=== PATIENT | female | born 1980 | race Caucasian/White ===

== ENCOUNTER 2021-10-03 05:44 | Emergency (ER) | payer OTHER ==
[~2021-10-03] VITALS: Ht 165.1 cm; Wt 84.1 kg
[2021-10-03] MEDS ORDERED: CALC60OI2 TP (05:52)
[2021-10-03] MEDS ORDERED: ACETAMINOPHEN 500 MG TABLET PO ONE (06:15)
[2021-10-03 06:42] LABS: BASOPHILS % (AUTO) 0.5 % (0.0-2.0); EOSINOPHILS % (AUTO) 0.8 % (1.0-6.0); HEMATOCRIT 39.2 % (36-46); HEMOGLOBIN 12.9 g/dL (12.0-16.0); LYMPHOCYTES # (AUTO) 2.3 K/uL (1.0-4.8); LYMPHOCYTES % (AUTO) 11.4 % (22.0-44.0); MEAN CORPUSCULAR HEMOGLOBIN 28.1 pg (26.0-34.0); MEAN CORPUSCULAR HGB CONC 32.8 G/dL (31.0-37.0); MEAN CORPUSCULAR VOLUME 86 fL (80-100); MONOCYTES # (AUTO) 1.2 K/uL (0.1-1.0); MONOCYTES % (AUTO) 5.9 % (2.0-9.0); NEUTROPHILS # (AUTO) 16.6 K/uL (1.8-7.7); NEUTROPHILS % (AUTO) 81.4 % (40.0-70.0); PLATELET COUNT (AUTO) 308 K/uL (150-450); RED BLOOD CELL COUNT(AUTO) 4.59 MIL/uL (4.00-5.20); RED CELL DISTRIBUTION WIDTH 13.7 % (11.5-14.5)
[2021-10-03 06:43] LABS: COVID AG,FIA SOURCE NASOPHARYNGEAL
[2021-10-03 06:49] LABS: ANION GAP 11 mmol/L (8-16); CALCIUM, TOTAL 7.9 mg/dL (8.8-10.5); CARBON DIOXIDE 26 mmol/L (22-29); CHLORIDE 105 mmol/L (98-107); CREATININE 0.64 mg/dL (0.60-1.30); GLUCOSE,RANDOM 74 mg/dL (70-110); POTASSIUM 3.4 mmol/L (3.5-5.1); SODIUM SERUM 142 mmol/L (136-145); UREA NITROGEN, BLOOD 15 mg/dL (7-18)
[2021-10-03 06:54] LABS: GLOMERULAR FILTR. RATE CALC > 60 mL/min (>60)
[2021-10-03 06:58] LABS: B-TYPE NATRIURETIC PEPTIDE 26 pg/mL (0-100)
[2021-10-03 07:03] LABS: ALANINE AMINOTRANSFERASE 19 U/L (12-78); ALBUMIN 3.6 g/dL (3.4-5.0); ALKALINE PHOSPHATASE 72 U/L (46-116); ASPARTATE AMINOTRANSFERASE 18 U/L (15-37); BILIRUBIN,TOTAL 0.3 mg/dL (0.1-1.0); CREATINE KINASE, TOTAL ONLY 49 U/L (26-192); HCG,QUANTITATIVE < 1 mIU/mL (0-6)
[2021-10-03] MEDS ORDERED: AZITHROMYCIN 500 MG TABLET PO ONE (07:15)
[2021-10-03] MEDS ORDERED: AZIT-84 PO (07:22)
[2021-10-03 07:29] LABS: INFLUENZA TYPE A NEGATIVE FOR TYPE A (NEGATIVE); INFLUENZA TYPE B NEGATIVE FOR TYPE B (NEGATIVE)
[2021-10-03 09:44] VITALS: BP 102/62
== END 2021-10-03 09:45 | disposition home or self-care (01) ==
LOC: EMS 05:45
DX: J40 Bronchitis, not specified as acute or chronic (principal); L40.9 Psoriasis, unspecified; F17.210 Nicotine dependence, cigarettes, uncomplicated; Z90.710 Acquired absence of both cervix and uterus; Z98.890 Other specified postprocedural states; Z88.6 Allergy status to analgesic agent; Z88.0 Allergy status to penicillin; Z20.822 Contact with and (suspected) exposure to COVID-19
CPT/HCPCS: 99285; 71045; 87426; 80053; 82550; 83880; 84484; 84702; 85025; 87804; 36415; 93005; Q9967

== ENCOUNTER 2022-04-08 04:17 | Emergency (ER) | payer OTHER ==
[~2022-04-08] VITALS: Ht 172.7 cm; Wt 109.1 kg
[~2022-04-08 04:17] MED LIST: AZIT-84 PO; CALC60OI2 TP
[2022-04-08 04:38] VITALS: BP 122/64
[2022-04-08] MEDS ORDERED: SULFAMETHOX/TRIMETH DS 800-160 MG/TABLET PO ONE (04:45)
[2022-04-08] MEDS ORDERED: IBUP-1492 PO (04:50)
[2022-04-08] MEDS ORDERED: SULF-261 PO (04:50)
== END 2022-04-08 05:10 | disposition home or self-care (01) ==
LOC: EMS 04:17
DX: K12.2 Cellulitis and abscess of mouth (principal); L40.9 Psoriasis, unspecified; F17.210 Nicotine dependence, cigarettes, uncomplicated; Z90.49 Acquired absence of other specified parts of digestive tract; Z90.710 Acquired absence of both cervix and uterus; Z88.0 Allergy status to penicillin; Z88.5 Allergy status to narcotic agent
CPT/HCPCS: 99283

== ENCOUNTER 2022-05-14 09:51 | Emergency (ER) | payer OTHER ==
[~2022-05-14] VITALS: Ht 165.1 cm; Wt 86.4 kg
[~2022-05-14 09:51] MED LIST changes: +AZIT-103 PO; -AZIT-84 PO; +IBUP-1492 PO; +SULF-261 PO
[2022-05-14] MEDS ORDERED: OxyCODONE HCL/ACETAMINOPHEN 5-325 MG TABLET PO ONE (11:00)
[2022-05-14] MEDS ORDERED: CLIN-26 PO (11:05)
[2022-05-14 11:28] VITALS: BP 137/70
== END 2022-05-14 11:48 | disposition home or self-care (01) ==
LOC: EMS 09:52
DX: K08.89 Other specified disorders of teeth and supporting structures (principal); L40.9 Psoriasis, unspecified; F17.210 Nicotine dependence, cigarettes, uncomplicated; Z90.49 Acquired absence of other specified parts of digestive tract; Z90.710 Acquired absence of both cervix and uterus; Z88.0 Allergy status to penicillin; Z88.5 Allergy status to narcotic agent
CPT/HCPCS: 99283

== ENCOUNTER 2023-07-04 09:24 | Emergency (ER) | payer OTHER ==
[~2023-07-04] VITALS: Ht 165.1 cm; Wt 84.1 kg
[~2023-07-04 09:24] MED LIST changes: -AZIT-103 PO; -CALC60OI2 TP; +CLIN-26 PO; -IBUP-1492 PO; -SULF-261 PO
[2023-07-04 09:26] VITALS: BP 143/82; PULSE 63; RESP 16; TEMP 98.4
[2023-07-04] MEDS ORDERED: RISA150P SQ (09:30)
[2023-07-04] MEDS: KETOROLAC TROMETHAMINE 30 MG/ML VIAL IM ONE (10:34)
[2023-07-04] MEDS: HYDROCODONE/ACETAMINOPHEN 5-325 MG TABLET PO ONE (10:34)
[2023-07-04] MEDS ORDERED: CLIN-142 PO (10:34)
== END 2023-07-04 10:40 | disposition home or self-care (01) ==
LOC: EMS 09:24
DX: S02.5XXA Fracture of tooth (traumatic), initial encounter for closed fracture (principal); F17.210 Nicotine dependence, cigarettes, uncomplicated; Z90.49 Acquired absence of other specified parts of digestive tract; Z90.710 Acquired absence of both cervix and uterus; Z88.0 Allergy status to penicillin; Z88.6 Allergy status to analgesic agent; X58.XXXA Exposure to other specified factors, initial encounter; Y93.89 Activity, other specified; Y92.89 Other specified places as the place of occurrence of the external cause; Y99.8 Other external cause status
CPT/HCPCS: 99283; 96372; J1885

== ENCOUNTER 2024-02-16 00:17 | Emergency (ER) | payer OTHER ==
[~2024-02-16] VITALS: Ht 165.1 cm; Wt 84.1 kg
[~2024-02-16 00:17] MED LIST changes: +CLIN-142 PO; -CLIN-26 PO; +RISA150P SQ
[2024-02-16 00:39] VITALS: BP 132/69; PULSE 76; RESP 18; TEMP 97.8; O2SAT 100
[2024-02-16] MEDS ORDERED: DIPH-1243 PO (01:04)
[2024-02-16] MEDS ORDERED: CLIN-26 PO (01:04)
[2024-02-16] MEDS ORDERED: SULF-261 PO (01:04)
[2024-02-16] MEDS: DiphenhydrAMINE HCL 25 MG CAPSULE PO ONE (01:06)
[2024-02-16] MEDS: CLINDAMYCIN HCL 150 MG CAPSULE PO ONE (01:06)
[2024-02-16] MEDS: SULFAMETHOX/TRIMETH DS 800-160 MG/TABLET PO ONE (01:06)
== END 2024-02-16 01:18 | disposition home or self-care (01) ==
LOC: EMS 00:17
DX: L03.113 Cellulitis of right upper limb (principal); F17.210 Nicotine dependence, cigarettes, uncomplicated; Z90.49 Acquired absence of other specified parts of digestive tract; Z90.710 Acquired absence of both cervix and uterus; Z88.0 Allergy status to penicillin; Z88.5 Allergy status to narcotic agent
CPT/HCPCS: 99284; Z7502; Z7610

== ENCOUNTER 2024-09-23 21:15 | Emergency (ER) | payer OTHER ==
[~2024-09-23] VITALS: Ht 165.1 cm; Wt 86.4 kg
[~2024-09-23 21:15] MED LIST changes: +CLIN-26 PO; +DIPH-1243 PO; +SULF-261 PO
[2024-09-23 21:30] VITALS: TEMP 98.4
[2024-09-23] MEDS: KETOROLAC TROMETHAMINE 30 MG/ML VIAL IM ONE (23:13)
[2024-09-23] MEDS ORDERED: CLIN-142 PO (23:32)
[2024-09-23] MEDS ORDERED: TRAM50TA5 PO (23:33)
[2024-09-23 23:42] VITALS: BP 119/77; PULSE 62; RESP 14; O2SAT 98
== END 2024-09-23 23:42 | disposition home or self-care (01) ==
LOC: EMS 21:15
DX: K08.89 Other specified disorders of teeth and supporting structures (principal); F17.210 Nicotine dependence, cigarettes, uncomplicated; Z90.49 Acquired absence of other specified parts of digestive tract; Z90.710 Acquired absence of both cervix and uterus; Z88.0 Allergy status to penicillin; Z88.5 Allergy status to narcotic agent
CPT/HCPCS: 99283; 96372; J1885